=== PATIENT | male | born 2000 | race Two or more races ===

== ENCOUNTER 2024-11-05 14:49 | Emergency (ER) | payer BC, SELFPAY ==
[2024-11-05 14:49] VITALS: BMI 34.9
[2024-11-05 14:56] VITALS: BP 144/89; PULSE 93; RESP 18; TEMP 37.3; O2SAT 96
--- NOTE | 2024-11-05 15:00 | XR_ITS ---
Examination: CT abdomen and pelvis without contrast. Coronal 3-D reconstructions. Sagittal 2-D reconstructions. Date and time of exam:2024, 1534 hours INDICATIONS: Abdominal pain and back pain beginning 3 days ago CTDI: vol (mGy): 14.1 DLP: (mGycm): 920 Technique: Axial images of the abdomen have been obtained, 3 mm slice thickness Intravenous contrast material has not been administered. Low dose protocols were performed. One or more of the following dose reduction techniques were used; automated exposure control, adjustment of the mA and/or KV according to patient size, use of iterative reconstruction technique. Findings: Severe diffuse fatty infiltration throughout the liver No gallstones Spleen not enlarged No pancreatic mass or edema Normal adrenal glands. No renal or ureteral calculi, no hydronephrosis Normal appendix No bowel obstruction No diverticulitis Normal seminal vesicles No prostatomegaly Urinary bladder intact Transitional S1 vertebral body L4-L5 2 mm central lumbar disc bulge IMPRESSION: Diffuse significant patchy infiltration throughout the liver No renal or ureteral calculi, no hydronephrosis Normal appendix No bowel obstruction diverticulitis or free air
--- NOTE | 2024-11-05 15:00 | PD.EDRME ---
Rapid Medical Screening Exam RME Arrival date/time: 11/05/24 14:49 24-year-old male presents to the emergency department for complaint of generalized abdominal pain Chief Complaint: Abdominal Pain Vital signs: Vital Signs Temperature 99.2 F 11/05/24 14:56 Pulse Rate 93 11/05/24 14:56 Respiratory Rate 18 11/05/24 14:56 Blood Pressure 144/89 H 11/05/24 14:56 Pulse Oximetry (%) 96 11/05/24 14:56 Oxygen Delivery Method Room Air 11/05/24 14:56 MD Attestation MD Attestation The patient was seen by the midlevel practitioner. I, the co-signing physician, was present during the entire ER visit. While I did not physically examine the patient, I was available for consultation as needed. I agree with the plan and documentation.
[2024-11-05 15:44] LABS: Basophils # (Auto) 0.1 Thou/mm3 (0.0-0.2); Basophils % (Auto) 1 % (0-2.5); Eosinophils # (Auto) 0.2 Thou/mm3 (0.0-0.5); Eosinophils % (Auto) 2 % (0-10); Hematocrit 47.0 % (41.0-53.0); Hemoglobin 15.9 g/dL (13.5-16.0); Immature Granulocytes Auto 0.08 Thou/mm3 (0.00-0.00); Lymphocytes # (Auto) 2.4 Thou/mm3 (1.0-4.8); Lymphocytes % (Auto) 25 % (10-50); Mean Corpuscular HGB Conc 33.8 g/dl (31.0-37.0); Mean Corpuscular Hemoglobin 29.4 pg (25.0-35.0); Mean Corpuscular Volume 87 fL (80-100); Monocytes # (Auto) 0.5 Thou/mm3 (0.0-0.8); Monocytes % (Auto) 5 % (0-12); Neutrophils # (Auto) 6.6 Thou/mm3 (1.8-7.7); Neutrophils % (Auto) 67 % (37-80); Nucleated Red Blood Cell # 0.00 Thou/mm3 (0.00-0.00); Nucleated Red Blood Cell % 0 /100 WBC (0); Platelet Count 317 Thou/mm3 (140-440); RDW Standard Deviation 39.9 fL (35.1-43.9); Red Blood Count 5.40 Miln/mm3 (4.50-5.90); White Blood Count 9.9 Thou/mm3 (3.8-10.6)
[2024-11-05 16:08] LABS: Alanine Aminotransferase 90 U/L (10-49); Albumin, Serum 4.7 gm/dL (3.5-5.0); Albumin/Globulin Ratio 1.9 (1.2-2.2); Alkaline Phosphatase 73 U/L (46-116); Anion Gap 10 (7-16); Aspartate Amino Transferase 51 U/L (0-34); BUN/Creatinine Ratio 9 Ratio (12-20); Bilirubin,Total 0.5 mg/dL (0.3-1.2); Blood Urea Nitrogen 8 mg/dL (9-23); Calcium 9.1 mg/dL (8.3-10.6); Calcium (Corrected) 9.1 mg/dL (8.5-10.1); Carbon Dioxide 26.6 mMol/L (20.0-31.0); Chloride 107 mMol/L (98-107); Creatinine (Component) 0.9 mg/dL (0.6-1.3); Estimated Creatinine Clearance 149.4 mL/min (>60); Globulin 2.5 gm/dL (2.3-3.5); Glucose 98 mg/dL (74-106); Lipase 38 U/L (12-53); Osmolality,Calculated 285 (275-295); Potassium 4.4 mMol/L (3.4-5.1); Sodium 144 mMol/L (136-145); Total Protein 7.2 gm/dL (5.7-8.2); eGFR > 60 See Note
--- NOTE | 2024-11-05 16:38 | PD.EDABDPN ---
ED Abdominal Pain RME/HPI General Chief Complaint: Abdominal Pain Stated complaint: ABD PAIN FOR 3 DAYS Time seen by provider: 11/05/24 16:45 Arrival date/time: 11/05/24 14:49 RME / HPI RME / HPI narrative: 11/05/24 14:49 24-year-old male presents to the emergency department for complaint of generalized abdominal pain DR. HALL MAIN ED EVALUATION 24 year old male with no stated medical history presents to the ED for evaluation of epigastric and periumbilical abdominal pain beginning 3 days ago after sexual intercourse. Described as aching in sensation, occurring intermittently since onset, rating 7/10 in severity. Reports pain is aggravated with use of abdominal muscles and not relieved with Motrin (last took at 8AM). Accompanied by nausea and two episodes of vomiting. Denies any history of similar pain or symptoms. Denies fevers, chills, chest pain, cough, shortness of breath, diarrhea, constipation, or urinary symptoms. Related Data Previous Rx's ?Medication ?Instructions ?Recorded amoxicillin 500 mg capsule 1 cap PO TID #30 caps 04/06/17 Allergies Allergy/AdvReac Type Severity Reaction Status Date / Time No Known Allergies Allergy Verified 11/05/24 14:51 Review of Systems Review of Systems Systems Reviewed: All systems reviewed, normal except as documented ED Exam Narrative Physical exam: GENERAL APPEARANCE:? alert and oriented x 4, well-developed, obese, no acute distress HEENT: normocephalic, atraumatic NECK: supple LUNGS: no respiratory distress, normal effort HEART: good peripheral perfusion ABDOMEN: non distended; discomfort to the upper abdomen on palpation, obese, no rebound, no guarding EXTREMITIES:? atraumatic NEUROLOGIC: awake; alert and oriented x4 PSYCHIATRIC:? appropriate mood and affect SKIN: warm, dry, normal color; no rashes Course Course Course Narrative: The labs are unremarkable, CT scan of abdomen/pelvis is negative for acute findings. Pain is most likely an abdominal wall strain from intercourse. I recommended Ibuprofen and Tylenol for pain. Patient is stable to be DC home. Quality Measures none Orders Category Date Time Status CT abdomen pelvis wo con Stat Exams 11/05/24 15:00 Completed CBC Stat Lab 11/05/24 15:27 Completed Comprehensive Metabolic Panel Stat Lab 11/05/24 15:27 Completed Lipase Stat Lab 11/05/24 15:27 Completed UA, C/S IF [Urinalysis, C/S if Indicated] Stat Lab 11/05/24 16:40 Received Vital Signs Vital signs: Vital Signs Temperature 99.2 F 11/05/24 14:56 Pulse Rate 93 11/05/24 14:56 Respiratory Rate 18 11/05/24 14:56 Blood Pressure 144/89 H 11/05/24 14:56 Pulse Oximetry (%) 96 11/05/24 14:56 Oxygen Delivery Method Room Air 11/05/24 14:56 Pulse ox is 96% on room air which is adequate. Abdominal Pain MDM MDM Narrative MDM Narrative:: Chacha Chirinos am scribing for and in the presence of Dr. Hall. Patient data External records reviewed:: None (No previous ED visits for review ) Clinical information provided by:: patient Social determinants that could affect healthcare access:: none Patient has the following chronic illnesses:: None reported How is presenting disease/condition affected by chronic disease/condition?: no chronic disease Evaluation data The following diagnostics were reviewed and interpreted by me:: lab results and radiology exam(s) Lab and/or radiology exams considered but not ordered:: None Interpretation Summary: Ordering Physician: Bob ARIAS)Ramiro NP Date of Service: 11/05/24 Procedure(s): CT abdomen pelvis wo con Accession Number(s): [id number] cc: Bob ARIAS)Ramiro NP; Uche Garcia MD; Rell Eaton MD~ Examination: CT abdomen and pelvis without contrast. Coronal 3-D reconstructions. Sagittal 2-D reconstructions. Date and time of exam:2024, 1534 hours INDICATIONS: Abdominal pain and back pain beginning 3 days ago CTDI: vol (mGy): 14.1 DLP: (mGycm): 920 Technique: Axial images of the abdomen have been obtained, 3 mm slice thickness Intravenous contrast material has not been administered. Low dose protocols were performed. One or more of the following dose reduction techniques were used; automated exposure control, adjustment of the mA and/or KV according to patient size, use of iterative reconstruction technique. Findings: Severe diffuse fatty infiltration throughout the liver No gallstones Spleen not enlarged No pancreatic mass or edema Normal adrenal glands. No renal or ureteral calculi, no hydronephrosis Normal appendix No bowel obstruction No diverticulitis Normal seminal vesicles No prostatomegaly Urinary bladder intact Transitional S1 vertebral body L4-L5 2 mm central lumbar disc bulge IMPRESSION: Diffuse significant patchy infiltration throughout the liver No renal or ureteral calculi, no hydronephrosis Normal appendix No bowel obstruction diverticulitis or free air Dictated By: Rell Eaton MD Signed By: <Electronically signed by Rell Eaton MD in OV> 11/05/24 1635 Medications / Prescriptions Medications or Prescriptions considered but not ordered:: None Medication administrations:: None Consultations Consultation(s) initiated? (list below): No Diagnosis Differential diagnosis abdominal pain: abdominal pain, constipation, gastroenteritis and pancreatitis Most likely diagnosis given after review of the tests above:: Abdominal wall strain Admission Indicated Admission indicated?: not indicated Admission Request Was there a request for admission?: No Disposition Plan Disposition Plan: Discharge Discharge Attestation Discharge Attestation: The patient and all family members were given an opportunity to ask questions and understood the discharge instructions. Discharge instructions specifically effects, indications for sooner follow up or return to the emergency department, and the expected course of current diagnosis. Patient condition: Stable Discharge Plan Plan Patient Disposition: HOME (Self Care) Patient condition on transfer: Stable Prescriptions/Referrals Prescriptions/Med Rec: No Action amoxicillin 500 MG capsule 1 cap PO TID Qty: 30 0RF Rx Instructions: use for 10 days Referrals: Uche Garcia MD [Primary Care Provider] - In 1 week Problem List Clinical Impression: Abdominal wall strain Patient/Caregiver Discharge Instructions Other Activity Instructions:: Rest of affected area for the next week Education Materials: ED Muscle Strain, Abdomen Additional Instructions: May take ibuprofen 600 mg every 6-8 hours as needed for pain. May also apply [place] balm ointment to affected area as needed. Print Language: [place] Stand Alone Forms: [employer] Award Info., Patient Portal Info Letter
[2024-11-05 16:49] LABS: Collection Type, Urine Clean Catch
[2024-11-05 16:58] LABS: Bilirubin,Urine Negative (Negative); Blood,Urine Negative (Negative); Clarity,Urine Clear (Clear/Hazy); Color,Urine Yellow (Lt Yel-Yel); Culture Indicated,Urine Not Indicated; Glucose, Urine Negative (Negative); Ketones,Urine Negative (Negative); Leukocyte Esterase,Urine Negative (Negative); Nitrite,Urine Negative (Negative); PH,Urine 5.5 (5.0-7.0); Protein,Urine Negative (Neg - Trace); RBC,Urine 1 /hpf (0-3); Specific Gravity,Urine 1.029 (1.001-1.035); Squamous Epithelial Cell,Urine < 1 /hpf (0-5); Urobilinogen,Urine Negative mg/dL (0.0-1.0); WBC,Urine 1 /hpf (0-5)
[2024-11-05 17:07] VITALS: BP 150/86; PULSE 87; RESP 16; TEMP 36.9; O2SAT 98
== END 2024-11-05 17:11 | disposition home or self-care (01) ==
PROVIDERS: Nurse Practitioner Primary Care; Emergency Provider Family Medicine; PCP Family Medicine
DX: S39.011A Strain of muscle, fascia and tendon of abdomen, initial encounter (principal); X58.XXXA Exposure to other specified factors, initial encounter
CPT/HCPCS: 36415; 74176; 80053; 81001; 83690; 85025; 99283